=== PATIENT | female | born 1985 | race American Indian/Alaskan Native ===

== ENCOUNTER 2021-09-22 02:33 | Inpatient (IN) | payer SELFPAY ==
[2021-09-22] MEDS ORDERED: ONDANSETRON 4 MG/2 ML INJ IV ONE ×2 (03:32→06:00)
[2021-09-22] MEDS ORDERED: MORPHINE 2 MG/1 ML INJ IV ONE (03:32)
[2021-09-22] MEDS ORDERED: SODIUM CHLORIDE 0.9% 1000 ML 1,000 ML IV ONE ×3 (03:32→03:36)
--- NOTE | 2021-09-22 03:51 | Emergency Department Report ---
ED Abdominal Pain HPI - General Chief Complaint: Nausea/Vomiting/Diarrhea Stated Complaint: NAUSEA VOMITING AND SYNCOPE Time Seen by Provider: 09/22/21 03:31 Source: patient, family Mode of arrival: Ambulatory Limitations: No Limitations, Language Barrier - History of Present Illness Initial Comments: Patient is 35 years old female 3 para 2. Patient stated that she thinks she is 7-9 weeks . She stated that she did not follow-up with OB yet. Patient presented to the ER complaining of several day nausea and vomiting and yesterday she started having abdominal pain. Patient stated that she has some spotting too. Patient denied any fever or chills. No chest pain or shortness of breath. Patient found to be hypertensive with blood pressure like 90/50. MD Complaint: abdominal pain -: days(s) Location: suprapubic Radiation: none Severity scale (0 -10): 8 Quality: cramping - Related Data Allergies Allergy/AdvReac Type Severity Reaction Status Date / Time amoxicillin AdvReac Unknown Verified 09/22/21 03:31 ED Review of Systems ROS: Stated complaint: NAUSEA VOMITING AND SYNCOPE Other details as noted in HPI Comment: All other systems reviewed and negative Constitutional: denies: chills, fever Respiratory: denies: cough, shortness of breath, SOB with exertion, SOB at rest Cardiovascular: palpitations. denies: chest pain Gastrointestinal: abdominal pain, nausea, vomiting. denies: diarrhea, constipation, hematemesis, melena, hematochezia Musculoskeletal: denies: back pain Neurological: denies: headache, weakness, numbness, paresthesias, confusion ED Past Medical Hx - Past Medical History Previous Medical History?: No - Surgical History Past Surgical History?: No ED Physical Exam - General Limitations: No Limitations, Language Barrier General appearance: alert, in no apparent distress - Head Head exam: Present: atraumatic, normocephalic, normal inspection - Eye Eye exam: Present: normal appearance - ENT ENT exam: Present: normal exam, mucous membranes dry - Neck Neck exam: Present: normal inspection. Absent: tenderness - Respiratory Respiratory exam: Present: normal lung sounds bilaterally - Cardiovascular Cardiovascular Exam: Present: regular rate, normal rhythm, normal heart sounds - GI/Abdominal GI/Abdominal exam: Present: soft, normal bowel sounds. Absent: distended, tenderness, guarding, rebound, rigid, organomegaly, mass, bruit, pulsatile mass, hernia - Extremities Exam Extremities exam: Present: normal inspection, full ROM, normal capillary refill. Absent: tenderness, pedal edema, joint swelling, calf tenderness - Back Exam Back exam: Present: normal inspection, full ROM. Absent: CVA tenderness (R), CVA tenderness (L) - Neurological Exam Neurological exam: Present: alert, oriented X3, CN II-XII intact - Psychiatric Psychiatric exam: Present: normal mood - Skin Skin exam: Present: warm, intact, normal color ED Course Vital Signs 09/22/21 09/22/21 02:39 03:11 Temperature 98 F 97.5 F L Pulse Rate 105 H Respiratory 18 Rate Blood Pressure 90/50 [Right] O2 Sat by Pulse 98 Oximetry ED Medical Decision Making - Lab Data Result diagrams: 09/22/21 03:41 09/22/21 03:41 - Radiology Data Radiology results: report reviewed - Medical Decision Making Patient is 35 years old female 3 para 2. Patient stated that she thinks she is 7-9 weeks . She stated that she did not follow-up with OB yet. Patient presented to the ER complaining of several day nausea and vomiting and yesterday she started having abdominal pain. Patient stated that she has some spotting too. Patient denied any fever or chills. No chest pain or shortness of breath. Patient found to be hypertensive with blood pressure like 90/50. Patient presentation is suspicious for ruptured ectopic . Patient r eceived 2 L of normal saline. Stat ultrasound has been ordered. Labs reviewed and showed a quant of 5800. Also show a hemoglobin of 8.1. 2 units of PRBC ordered anticipating more loss of blood. I received a call from [facility] [facility] stating that ultrasound showed a possible ruptured ectopic preg shanna. I immediately discussed the patient with Dr. Schroeder, OB on-call. He is coming to evaluate the patient for further management. Critical Care Time: Yes Critical care time in (mins) excluding proc time.: 35 Critical care attestation.: If time is entered above; I have spent that time in minutes in the direct care of this critically ill patient, excluding procedure time. ED Disposition Clinical Impression: Ruptured ectopic Disposition: ADMITTED INPATIENT Is pt being admited?: Yes Condition: Stable
[2021-09-22 04:00] LABS: Basophils % (Auto) 0.2 % (0.0-1.8); Eosinophils % (Auto) 0.1 % (0.0-4.3); Hematocrit 23.7 % (30.3-42.9); Hemoglobin 8.1 gm/dl (10.1-14.3); Lymphocytes # (Auto) 1.2 K/mm3 (1.2-5.4); Lymphocytes % (Auto) 9.6 % (13.4-35.0); Mean Corpuscular HGB Conc 34 % (30-34); Mean Corpuscular Volume 96 fl (79-97); Monocytes # (Auto) 0.5 K/mm3 (0.0-0.8); Monocytes % (Auto) 4.1 % (0.0-7.3); Platelet Count 258 K/mm3 (140-440); Red Blood Count 2.48 M/mm3 (3.65-5.03); Red Cell Distribution Width 13.4 % (13.2-15.2)
[2021-09-22 04:20] LABS: Alanine Aminotransferase 8 units/L (7-56); BUN/Creatinine Ratio 13; Bilirubin,Direct < 0.2 mg/dL (0-0.2); Blood Urea Nitrogen 8 mg/dL (7-17); Calcium 7.3 mg/dL (8.4-10.2); Hemolysis Index 21
[2021-09-22] MEDS ORDERED: MORPHINE 4 MG/1 ML INJ IM ONE (06:00)
[2021-09-22] MEDS ORDERED: SODIUM CHLORIDE 0.9% 500 ML 500 ML IV ONE (06:03)
--- NOTE | 2021-09-22 06:05 | Ultrasound Report ---
ULTRASOUND PELVIS INDICATION: Abdominal pain . TECHNIQUE: Transabdominal. Duplex Color Doppler used: Yes. COMPARISON: None available FINDINGS: Uterus: Present. Size: 9.6 x 5 x 5.9 cm. Endometrial complex: Thickened measuring 2.1 cm. Mass lesions: None. Additional findings: None. Right Ovary -- Normal. Blood flow: Normal. Cyst or mass: None. Left Ovary-- Normal. Blood flow: Normal. Cyst or mass: 1.9 cm cyst. Urinary Bladder: Normal. Free Fluid: None. Additional Findings: Moderate complex fluid. IMPRESSION: 1. Thickened endometrial stripe. No intrauterine . 2. Moderate complex fluid. This is nonspecific but can be seen in the setting of ectopic 3. 1.9 cm left ovarian cyst. Signer Name: Ángel Alaniz MD Signed: 09/22/2021 6:01 AM Workstation Name: [id number]
--- NOTE | 2021-09-22 07:04 | History and Physical Report ---
History of Present Illness Date of examination: 09/22/21 Date of admission: 09/22/2021 Chief complaint: Abdominal pain and N/V History of present illness: 35 y/o at 7-3/7 weeks presents to [facility] reporting sudden onset abdominal pain with associated nausea and vomiting. She reports the pain as sharp, 8/10, and intermittent radiating from pelvis. She is . B-hCG today is >5,000. No IUP seen on pelvic US, however blood surrounding uterus is seen. HgB= 8.1. Clinically, I am suspicious for a ruptured ectopic . As such, I offered this patient diagnostic laparoscopy, possible exploratory laparatomy, and possible salpingectomy. The R/A/B were explained, including but not limited to: infection, bleeding, damage to bowel and/or bladder, and . She verbalized understanding and signed the operative consent form. Currently, she is receiving a blood transfusion in the E.R.. An additional 2 units of PRBC are crossmatched. I met with the nursing refrigeration supervisor to mobilize an O.R. team. 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 Family/Genetic History: diabetes (Mother) Social history: no significant social history - Obstetrical History Expected Date of Delivery: 05/08/22 Actual Gestation: 7 Week(s) 3 Day(s) : 3 Para: 2 Hx # Term Pregnancies: 2 Number of Pregnancies: 0 Spontaneous Abortions: 0 Induced : 0 Number of Living Children: 2 Medications and Allergies Allergies Allergy/AdvReac Type Severity Reaction Status Date / Time amoxicillin AdvReac Unknown Verified 09/22/21 03:31 Review of Systems All systems: negative Gastrointestinal: abdominal pain, nausea, vomiting - Vital Signs Vital signs: Vital Signs Temp Pulse Resp BP Pulse Ox 98 F 105 H 18 90/50 98 09/22/21 02:39 09/22/21 02:39 09/22/21 02:39 09/22/21 02:39 09/22/21 02:39 Temp Pulse Resp BP Pulse Ox 97.5 F L 105 H 18 90/50 98 09/22/21 03:11 09/22/21 02:39 09/22/21 02:39 09/22/21 02:39 09/22/21 02:39 - Physical Exam Breasts: Positive: normal Cardiovascular: Other (tachycardia) Lungs: Positive: Normal air movement Abdomen: Positive: distention, tenderness, other (Rebound tenderness) Genitourinary (Female): Positive: normal external genitalia, normal perenium Vulva: both: normal Vagina: Positive: normal moisture Uterus: Positive: enlarged, tender Adnexa: both: tenderness Anus/Rectum: Positive: normal perianal skin Extremities: Positive: normal Deep Tendon Reflex Grade: Normal +2 Results Result Diagrams: 09/22/21 03:41 09/22/21 03:41 Abnormal lab results 09/22/21 09/22/21 09/22/21 Range/Units 03:41 03:41 03:41 WBC 12.7 H (4.5-11.0) K/mm3 RBC 2.48 L (3.65-5.03) M/mm3 Hgb 8.1 L (10.1-14.3) gm/dl Hct 23.7 L (30.3-42.9) % MCH 33 H (28-32) pg Lymph % (Auto) 9.6 L (13.4-35.0) % Seg Neutrophils % 86.0 H (40.0-70.0) % Seg Neutrophils # 10.9 H (1.8-7.7) K/mm3 Sodium 135 L (137-145) mmol/L Carbon Dioxide 17 L (22-30) mmol/L Glucose 116 H (65-100) mg/dL Calcium 7.3 L (8.4-10.2) mg/dL Total Protein 5.2 L (6.3-8.2) g/dL Albumin 3.0 L (3.9-5) g/dL HCG, Quant 5842 H (0-4) mIU/mL Crossmatch 09/22/21 Range/Units 05:43 WBC (4.5-11.0) K/mm3 RBC (3.65-5.03) M/mm3 Hgb (10.1-14.3) gm/dl Hct (30.3-42.9) % MCH (28-32) pg Lymph % (Auto) (13.4-35.0) % Seg Neutrophils % (40.0-70.0) % Seg Neutrophils # (1.8-7.7) K/mm3 Sodium (137-145) mmol/L Carbon Dioxide (22-30) mmol/L Glucose (65-100) mg/dL Calcium (8.4-10.2) mg/dL Total Protein (6.3-8.2) g/dL Albumin (3.9-5) g/dL HCG, Quant (0-4) mIU/mL Crossmatch See Detail All other labs normal. Ultrasound: report reviewed, image reviewed (No IUP. Suspicious for pelvic blood surrounding uterus.) Assessment and Plan - Patient Problems (1) Ruptured ectopic Current Visit: Yes Status: Acute Plan to address problem: B-hCG today is >5,000. No IUP seen on pelvic US, however blood surrounding uterus is seen. HgB= 8.1. Clinically, I am suspicious for a ruptured ectopic . As such, I offered this patient diagnostic laparoscopy, possible exploratory laparatomy, and possible salpingectomy. The R/A/B were explained, including but not limited to: infection, bleeding, damage to bowel and/or bladder, and . She verbalized understanding and signed the operative consent form. Currently, she is receiving a blood transfusion in the E.R.. An additional 2 units of PRBC are crossmatched. I met with the nursing refrigeration supervisor to mobilize an O.R. team.
--- NOTE | 2021-09-22 07:49 | Anesthesia Day of Surgery ---
Anesthesia Day of Surgery - Day of Surgery Patient Examined: Yes Patient H&P Reviewed: Yes Patient is NPO: Yes
--- NOTE | 2021-09-22 07:49 | Anesthesia Consultation ---
Anesthesia Consult and Med Hx Date of service: 09/22/21 - Airway Anesthetic Teeth Evaluation: Good ROM Head & Neck: Adequate Mental/Hyoid Distance: Adequate Mallampati Class: Class II Intubation Access Assessment: Probably Good - Pre-Operative Health Status ASA Pre-Surgery Classification: ASA2, Emergency Proposed Anesthetic Plan: General - Pulmonary Hx Smoking: Yes (vapes sometimes) - Hematic Hx Anemia: Yes - Other Systems Hx Obesity: Yes - Additional Comments Anesthesia Medical History Comments: ectopic
[2021-09-22] MEDS ORDERED: HYDROmorphone 1 MG/1 ML INJ ONE (07:52)
[2021-09-22] MEDS ORDERED: LIDOCAINE MPF (2%) 20 MG/1 ML VIAL 5 ML ONE (07:53)
[2021-09-22] MEDS ORDERED: SUCCINYLCHOLINE CHLORIDE 200 MG/10 ML INJ MDV ONE (07:53)
[2021-09-22] MEDS ORDERED: ROCURONIUM 50 MG/5 ML INJ IV ONE (07:53)
[2021-09-22] MEDS ORDERED: propofoL 200 MG/20 ML VIAL IV ONE (07:53)
[2021-09-22] MEDS ORDERED: SODIUM CHLORIDE 0.9% 1000 ML 1,000 ML ONE ×5 (08:11→15:41)
[2021-09-22] MEDS ORDERED: PHENYLEPHRINE/NS 1,000 MCG/10 ML SYRINGE (OR USE) IV ONE (08:27)
--- NOTE | 2021-09-22 08:32 | Event Note ---
Date: 09/22/21 I received this patient in the OR hallway from Dr. Schroeder and additional Dilatation and Curettage procedure added to consents since normal ovaries bilaterally and tubes and no IUP seen with B-HCG >5,000. Pt also told with hemoperitoneum, I will proceed with exploratory laparotomy not laparoscopy and pt agreeable. Patient signed the additional portion of consents in the presence of OR circulating nurse who witnessed. Pt taken to OR via stretcher. Of note is the pt present to ER at 3:48am and their note states Dr. Schroeder was immediately notified at that time.
[2021-09-22] MEDS ORDERED: GENTAMICIN 40 MG/ML VIAL 2 ML ONE (08:51)
[2021-09-22] MEDS ORDERED: SODIUM CHLORIDE 0.9% IRR 1,500 ML BOTTLE IR ONE (08:56)
[2021-09-22] MEDS ORDERED: BUPIVACAINE/PF (0.5%) 5 MG/1 ML 30 ML VIAL INFILTRATI ONE ×3 (08:57→09:16)
[2021-09-22] MEDS ORDERED: SODIUM CHLORIDE 0.9% 100 ML ONE (09:07)
[2021-09-22] MEDS ORDERED: dexAMETHasone 20 MG/5 ML VIAL ONE (09:32)
[2021-09-22] MEDS ORDERED: NEOSTIGMINE 10MG/10 ML INJ MDV ONE (10:25)
[2021-09-22] MEDS ORDERED: GLYCOPYRROLATE 0.4 MG/2 ML INJ ONE (10:26)
[2021-09-22] MEDS ORDERED: ONDANSETRON 4 MG/2 ML INJ ONE (10:26)
[2021-09-22] MEDS: HYDROmorphone 1 MG/1 ML INJ IV PRN ×3 (11:10→11:30)
--- NOTE | 2021-09-22 11:10 | Procedure Note ---
Date of procedure: 09/22/21 Pre-op diagnosis: Ruptured ectopic Post-op diagnosis: same (Ruptured right ectopic with 1600cc hemoperitoneum) Procedure: Exploratory lap and right salpingectomy with evacuation of hemoperitoneum After the risks, benefits and alternatives again discussed with patient and additional possible dilatation and curettage added to her current consents of exploratory laparotomy due to fluid noted on ultrasound, pt signed consents with initials at my point of addition and then I also signed the consents previously obtained by Dr. Schroeder. Pt was taken via stretcher to the OR with IV fluids running, time out done and general anesthesia given. Pt was prepped and draped after anethesia adequate, simon cath was placed and pt given clindamycin and gentamycin preop abx (PCN allergy) Transverse incision made in the natural abdominal pfannenstiel crease, however measuring approx 7cm, this was taken sharply to the fascia and the fascia entered using electrocautery and extended bilaterally. The superior fascia was bluntly and also with the electrocautery and in a similar manner the inferior fascia. The rectus muscle then in the midline and purple color seen thru peritoneum. Peritoneal cavity entered bluntly and pool suction used and attention placed to lower pelvis where I grasped the fundus and look at the left adnexa with ultrasound stating there was a cyst, same appeared normal and then right adnexa examined and active bleeding noted from ruptured tube site. Avascular portion of mesosalpinx entered and the raudel clamps placed on the proximal tube near cornua and the remaining ruptured tube with products of conception and with fimbriae excised completely. The remaining free ends doubly clamped and suture ligated with 0-vicryl suture. Excellent hemostasis achieved. Attention turned to evacuating the remaining clots with both right and left culdesac having hemoperitoneum measuring a total of 1600cc. Copious irrigation done to abdomen with additional 2000cc of warm normal saline and hemostasis remains. Pt placed in reverse trendelenburg to clear both side of any remaining blood or clots. The peritoneum was then closed using 3-0 vicryl in a continuous fashion and the rectus muscle reapproximated with 0-vicryl in a continuous fashion. The rectus closed from left side towards the right in a continuous fashion. The subcutaneous tissue was irrigated with normal saline and reapproximated with 3-0 vicryl continuously. The skin closed with 4-0 monocryl, steristrips placed and local anesthesia 0.25% plain marcaine given. Telfa and Abd dressing applied Pathology: All the large clots not absorbed in suction container and the right ruptured tube and products of conception attached INTAKE: 2000cc crystalloids and 2units PRBC OUTPUT: 350cc clear urine at the end of the procedure EBL: 1600cc hemoperitoneum Findings: Hemoperitoneum vast approx 1600cc per anesthesia with extensive dark clots and active bleed noted to right ruptured fallopian tube with products of conception almost completely expelled in the cavity. normal right ovary; normal left tube and ovary. Dr. Schroeder also notified of this finding Implants: none Anesthesia: SEAN Surgeon: AL KERR Estimated blood loss: other (1600cc hemoperitoneum) Pathology: list (Extensive dark clots throughout abdomen and left fallopian tube with fimbriae and small products of conception attached thru the hole in tube) Specimen disposition: to lab Condition: stable Disposition: PACU
[2021-09-22] MEDS ORDERED: ONDANSETRON 4 MG/2 ML INJ IV PRN ×2 (12:00→17:38)
[2021-09-22] MEDS ORDERED: HYDROmorphone 1 MG/1 ML INJ IV PRN ×2 (12:00→17:38)
[2021-09-22 12:28] LABS: Hematocrit 25.4 % (30.3-42.9); Hemoglobin 8.1 gm/dl (10.1-14.3)
--- NOTE | 2021-09-22 13:10 | Event Note ---
Date: 09/22/21 pt seen in recovery/PACU and nurse states systolic decreased to 80's and pt allowed to speak with her in my presence and her heart rate increased to 100-110's; I agree for #3 PRBC to be transfused and repeat H/H in 4hrs unless pressures still low. Pt gets IV pain med. May have toradol prn later when stable. To receive additional IV abx for post op x24hrs. Urine output good with 200cc noted in simon at this time and same clear. Plan of care discussed with patient and her notified per her request. Will transfer to postpar brent only when pt stable and nurses aware.
[2021-09-22] MEDS ORDERED: SODIUM CHLORIDE 0.9% 500 ML 500 ML ONE (13:54)
[2021-09-22] MEDS ORDERED: ALBUMIN HUMAN 25% (25 GM/100 ML) INJ IV ONE (14:50)
[2021-09-22 14:53] LABS: Mean Corpuscular HGB Conc 35 % (30-34); Mean Corpuscular Volume 90 fl (79-97); Platelet Count 165 K/mm3 (140-440); Red Blood Count 2.56 M/mm3 (3.65-5.03); Red Cell Distribution Width 16.7 % (13.2-15.2)
--- NOTE | 2021-09-22 15:55 | Cat Scan Report ---
CT ABDOMEN AND PELVIS WITH CONTRAST HISTORY: severe anemia COMPARISON: No relevant comparison TECHNIQUE: Axial CT images were obtained through the abdomen and pelvis after 100 cc of IV contrast. Sagittal and coronal reformatted images. All CT scans at this location are performed using CT dose re duction for ALARA by means of automated exposure control. FINDINGS: CT ABDOMEN: Lung Bases: Trace bilateral pleural effusions and minor subpleural atelectatic changes in the lung ba ses. Normal heart size. Liver: 1.8 cm hypodense lesion in the left hepatic lobe with subtle peripheral nodular enhancement pr obably represents a cavernous hemangioma. The remainder the liver is unremarkable. Biliary: No significant abnormality. Spleen: No significant abnormality. Unenlarged. Pancreas: No significant abnormality. Adrenals: No significant abnormality. Kidneys: There appear to be a U tiny calyceal stones in the superior right kidney. The left kidney an d collecting system are unremarkable. No hydronephrosis. Lymphatics: No lymphadenopathy. Vasculature: No significant abnormality. Bowel/Peritoneum: No evidence for bowel obstruction or focal inflammation. There is a mild degree of hyperdense fluid in the pelvis and lower abdomen. Density measures 55 Hounsfield units in the cul-de- sac. This is consistent with small to medium hemoperitoneum. There is trace free air in the lower pel vis and along the anterior pelvic wall soft tissues consistent with recent surgery. CT PELVIS: : The uterus and adnexa are unremarkable. The bladder is mostly empty but unremarkable. Osseous Structures: No significant abnormality. Additional Findings: None IMPRESSION: Small to medium slightly hyperdense fluid is identified in the pelvis consistent with hemoperitoneum. There is evidence for recent surgery. No large uncontained hemorrhage is appreciated. Signer Name: Pepito Miranda Jr, MD Signed: 09/22/2021 3:50 PM Workstation Name: [id number]
[2021-09-22 16:00] LABS: Basophils % (Manual) 0 % (0.0-1.8); Eosinophils % (Manual) 0 % (0.0-4.3); Monocytes % (Manual) 0 % (0.0-7.3); RBC Morphology Normal; Total Cells Counted 100; Toxic Granulation 1+
[2021-09-22 16:01] LABS: Platelet Estimate Consistent w Auto
[2021-09-22 16:37] LABS: ABG Base Excess -6.4 mmol/L (-2.0-3.0); ABG HCO3 18.7 mmol/L (20.0-26.0); ABG Methemoglobin 0.5 % (0.0-1.5); ABG Oxygen Saturation 98.2 % (95.0-99.0); ABG PCO2 35.1 mm Hg; ABG PH 7.343 pH Units (7.350-7.450); ABG PO2 118.2 mm Hg (80.0-90.0)
--- NOTE | 2021-09-22 16:41 | Event Note ---
Date: 09/22/21 pt evaluated in PACU with no symptoms of dizziness or light headedness when sitting upwards. Abd soft and non-distended. perineal pad with dime size dark red stain. Pt states this is the best she has felt in the past 24hrs. Denies previous upper abd pain. Pt has received 2units PRBC and hgb 8.1 and platelets 165 and vitals with BP high 86-88/50's and heart rate 93 -104. O2sat at 97-99% with n/cannula at 2L/min. Pt given an additional 2units and CT of abd/pelvis done with normal uterus and adnexa and small to moderate fluid in the pelvis. Pt was given copious irrigation by me in the OR. In my estimation, pt may have lost more than 1600cc with hemoperitoneum with hgb of 8 to start. Discussed current findings with anesthesia team, ABG ordered by them to determine base excess and same was BE -6 with hgb now 9.3. When anesthesia conversed with pt, she states that her systolic highest is 110's and her BP runs 90-110's systolic usually. To return to the OR without an active bleed, will be last resort. Urine output remains >100cc/hr. 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 Will repeat cbc in 4hrs prior to another transfusion. Neither PRBC nor FFP available at the blood bank at this time with blood shortage in [place]. Plan of care discussed with pt and all questions encouraged and answered.
[2021-09-22] MEDS ORDERED: METOCLOPRAMIDE 10 MG/2 ML INJ IV PRN (17:38)
[2021-09-22] MEDS ORDERED: MORPHINE 2 MG/1 ML INJ IV PRN (17:38)
[2021-09-22] MEDS ORDERED: SIMETHICONE 80 MG CHEW TAB PO PRN (17:38)
[2021-09-22] MEDS ORDERED: LACTATED RINGERS 1,000 ML IV SCH (17:38)
[2021-09-22] MEDS ORDERED: SODIUM CHLORIDE 0.9% 500 ML 500 ML IV SCH (18:08)
[2021-09-22] MEDS: GENTAMICIN/NS 80 MG/100 ML 100 ML IV SCH (18:23)
[2021-09-22] MEDS ORDERED: oxyCODONE /ACETAMINOPHEN 5-325MG TAB PO PRN (18:28)
--- NOTE | 2021-09-22 18:33 | Post Anesthesia Evaluation ---
- Post Anesthesia Evaluation Patient Participated: Yes Airway Patent: Yes Stable Respiratory Function: Yes Nausea/Vomiting: No Temp > 96.8F: Yes Pain Manageable: Yes Adequeate Hydration: Yes Anesthesia Complications: No Block Receding Appropriately: Not Applicable Patient on Ventilator: No
[2021-09-22] MEDS ORDERED: D5W/0.45% NACL/KCL 20 MEQ 20 MEQ/1,000 ML BAG IV SCH (19:38)
[2021-09-22 20:15] LABS: Hematocrit 26.3 % (30.3-42.9); Mean Corpuscular HGB Conc 34 % (30-34); Mean Corpuscular Volume 88 fl (79-97); Platelet Count 165 K/mm3 (140-440); Red Blood Count 2.98 M/mm3 (3.65-5.03)
[2021-09-22 20:41] LABS: Alanine Aminotransferase 7 units/L (7-56); Albumin 3.2 g/dL (3.9-5); Blood Urea Nitrogen 5 mg/dL (7-17); Calcium 6.2 mg/dL (8.4-10.2); Hemolysis Index 10
[2021-09-22 21:16] LABS: BUN/Creatinine Ratio 10
[2021-09-22 21:40] LABS: Basophils % (Manual) 0 % (0.0-1.8); Eosinophils % (Manual) 0 % (0.0-4.3); Total Cells Counted 100
[2021-09-22 21:43] LABS: Platelet Estimate Consistent w Auto; RBC Morphology Normal
[2021-09-22] MEDS: KETOROLAC 30 MG/1 ML INJ IV PRN (23:39)
[2021-09-23] MEDS: GENTAMICIN/NS 80 MG/100 ML 100 ML IV SCH ×2 (02:55→11:05)
[2021-09-23] MEDS: KETOROLAC 30 MG/1 ML INJ IV PRN ×2 (06:16→19:00)
[2021-09-23 10:59] LABS: Basophils # (Auto) 0.1 K/mm3 (0.0-0.1); Basophils % (Auto) 0.6 % (0.0-1.8); Eosinophils # (Auto) 0.1 K/mm3 (0.0-0.4); Eosinophils % (Auto) 0.5 % (0.0-4.3); Hematocrit 24.9 % (30.3-42.9); Hemoglobin 8.4 gm/dl (10.1-14.3); Lymphocytes # (Auto) 2.8 K/mm3 (1.2-5.4); Lymphocytes % (Auto) 29.3 % (13.4-35.0); Mean Corpuscular HGB Conc 34 % (30-34); Mean Corpuscular Volume 88 fl (79-97); Monocytes # (Auto) 0.6 K/mm3 (0.0-0.8); Platelet Count 159 K/mm3 (140-440); Red Blood Count 2.83 M/mm3 (3.65-5.03); Red Cell Distribution Width 16.5 % (13.2-15.2)
[2021-09-23 11:24] LABS: Alanine Aminotransferase 7 units/L (7-56); Blood Urea Nitrogen 5 mg/dL (7-17); Calcium 6.6 mg/dL (8.4-10.2); Hemolysis Index 3
--- NOTE | 2021-09-23 11:34 | Progress Note ---
Assessment and Plan POD#1 Exp lap, right salpingectomy for ruptured ectopic with anemia; s/p 4units PRBC 1. Repeat CBC this am with hgb 8.4 2. Await results for HCG quant and CMP today; specimen in lab 3. Will remove dressing later this evening and continue routine post op care Will discharge home tomorrow if pt stable Subjective Date of service: 09/23/21 Principal diagnosis: POD#1 Exp lap, right salpingectomy for ruptured ectopic preg Interval history: pt states that she feels much better than yesterday and denies right shoulder pain or upper abd pain. pt states pain only along her incision that is controlled with meds. pt has passed flatus and voiding without difficulty. The nurses state pt states she is ready to go home however when I evaluated pt, she states her friend is in town taking care of her 2yr old baby and she would rather stay overnight and make sure everything is alright. denies chest pain or dizziness. Denies vag bleed. pt is breast pumping milk that she was instructed to dump x24hrs after her current surgery, then she looks forward to continue breast feeding her 2yr old at home. Objective - Constitutional Vitals: Vital Signs - 12hr 09/23/21 09/23/21 09/23/21 00:21 04:58 07:18 Temperature 98.8 F 99.0 F 98.2 F Pulse Rate 88 102 H 95 H Pulse Rate [ Apical] Respiratory 16 16 18 Rate Blood Pressure 90/54 94/52 94/57 O2 Sat by Pulse 100 97 92 Oximetry 09/23/21 09/23/21 08:00 10:26 Temperature Pulse Rate Pulse Rate [ 95 H Apical] Respiratory 18 Rate Blood Pressure O2 Sat by Pulse 94 94 Oximetry General appearance: Present: no acute distress - Neck Neck: normal ROM - Respiratory Respiratory effort: normal - Cardiovascular Rhythm: regular Extremities: No edema - Gastrointestinal General gastrointestinal: Present: soft, non-tender, hypoactive bowel sounds, other (dressing C/D/I) - Genitourinary Female genitourinary: other (peripad without any blood) - Neurologic Neurologic: moves all extremities - Psychiatric Psychiatric: cooperative - Labs CBC & Chem 7: 09/23/21 10:34 09/22/21 19:53 Labs: Abnormal lab results 09/22/21 09/22/21 09/22/21 Range/Units 05:43 16:28 19:53 WBC 11.4 H (4.5-11.0) K/mm3 RBC 2.98 L (3.65-5.03) M/mm3 Hgb 9.0 L (10.1-14.3) gm/dl Hct 26.3 L (30.3-42.9) % MCHC (30-34) % RDW 17.0 H (13.2-15.2) % Seg Neuts % (Manual) 90.0 H (40.0-70.0) % Lymphocytes % (Manual) 7.0 L (13.4-35.0) % Seg Neutrophils # Man 10.3 H (1.8-7.7) K/mm3 Lymphocytes # (Manual) 0.8 L (1.2-5.4) K/mm3 ABG pH 7.343 L (7.350-7.450) pH Units ABG pO2 118.2 H (80.0-90.0) mm Hg ABG HCO3 18.7 L (20.0-26.0) mmol/L ABG Base Excess -6.4 L (-2.0-3.0) mmol/L ABG Hemoglobin 9.3 L (12.0-16.0) gm/dl Chloride (98-107) mmol/L Carbon Dioxide (22-30) mmol/L BUN (7-17) mg/dL Creatinine (0.6-1.2) mg/dL Glucose (65-100) mg/dL Calcium (8.4-10.2) mg/dL Total Protein (6.3-8.2) g/dL Albumin (3.9-5) g/dL Crossmatch See Detail 09/22/21 09/22/21 09/22/21 Range/Units 19:53 Unknown Unknown WBC 12.7 H (4.5-11.0) K/mm3 RBC 2.56 L (3.65-5.03) M/mm3 Hgb 8.1 L 8.0 L (10.1-14.3) gm/dl Hct 25.4 L 23.0 L (30.3-42.9) % MCHC 35 H (30-34) % RDW 16.7 H (13.2-15.2) % Seg Neuts % (Manual) 95.0 H (40.0-70.0) % Lymphocytes % (Manual) 5.0 L (13.4-35.0) % Seg Neutrophils # Man 12.1 H (1.8-7.7) K/mm3 Lymphocytes # (Manual) 0.6 L (1.2-5.4) K/mm3 ABG pH (7.350-7.450) pH Units ABG pO2 (80.0-90.0) mm Hg ABG HCO3 (20.0-26.0) mmol/L ABG Base Excess (-2.0-3.0) mmol/L ABG Hemoglobin (12.0-16.0) gm/dl Chloride 111.0 H (98-107) mmol/L Carbon Dioxide 18 L (22-30) mmol/L BUN 5 L (7-17) mg/dL Creatinine 0.5 L (0.6-1.2) mg/dL Glucose 116 H (65-100) mg/dL Calcium 6.2 L D (8.4-10.2) mg/dL Total Protein 4.8 L (6.3-8.2) g/dL Albumin 3.2 L (3.9-5) g/dL Crossmatch 09/23/21 Range/Units 10:34 WBC (4.5-11.0) K/mm3 RBC 2.83 L (3.65-5.03) M/mm3 Hgb 8.4 L (10.1-14.3) gm/dl Hct 24.9 L (30.3-42.9) % MCHC (30-34) % RDW 16.5 H (13.2-15.2) % Seg Neuts % (Manual) (40.0-70.0) % Lymphocytes % (Manual) (13.4-35.0) % Seg Neutrophils # Man (1.8-7.7) K/mm3 Lymphocytes # (Manual) (1.2-5.4) K/mm3 ABG pH (7.350-7.450) pH Units ABG pO2 (80.0-90.0) mm Hg ABG HCO3 (20.0-26.0) mmol/L ABG Base Excess (-2.0-3.0) mmol/L ABG Hemoglobin (12.0-16.0) gm/dl Chloride (98-107) mmol/L Carbon Dioxide (22-30) mmol/L BUN (7-17) mg/dL Creatinine (0.6-1.2) mg/dL Glucose (65-100) mg/dL Calcium (8.4-10.2) mg/dL Total Protein (6.3-8.2) g/dL Albumin (3.9-5) g/dL Crossmatch Medications & Allergies - Medications Allergies/Adverse Reactions: Allergies amoxicillin Adverse Reaction (Verified 09/22/21 03:31) Unknown "Constipation" Home Medications: Home Medications Medication Instructions Recorded Confirmed Last Taken Type No Known Home Medications [No 09/23/21 09/23/21 Unknown History Reported Home Medications] Active Medications: Generic Name Dose Route Start Last Admin Trade Name Freq PRN Reason Stop Dose Admin Hydromorphone HCl 0.5 mg 09/22/21 12:00 Hydromorphone 1 Mg/1 Ml Inj IV Q10MIN PRN Pain , Severe (7-10) Hydromorphone HCl 0.5 mg 09/22/21 17:38 Hydromorphone 1 Mg/1 Ml Inj IV Q3H PRN Pain , Severe (7-10) Lactated Ringer's 1,000 mls @ 150 mls/hr 09/22/21 17:38 09/22/21 22:55 Lactated Ringers IV 150 mls/hr DIRECT ROULA Administration Potassium Chloride/Dextrose/Sod Cl 20 meq in 1,000 mls @ 150 mls/hr 09/22/21 19:38 D5w/0.45% Nacl/Kcl 20 Meq IV DIRECT ROULA Sodium Chloride 500 mls @ 0 mls/hr 09/22/21 18:08 Nacl 0.9% 500 Ml IV ONCE ROULA As Directed Ketorolac Tromethamine 15 mg 09/22/21 17:38 09/23/21 06:16 Ketorolac 30 Mg/1 Ml Inj IV 15 mg Q6H PRN Administration Pain, Moderate (4-6) Metoclopramide HCl 10 mg 09/22/21 17:38 Metoclopramide 10 Mg/2 Ml Inj IV Q6H PRN Nausea And Vomiting Morphine Sulfate 2 mg 09/22/21 17:38 Morphine 2 Mg/1 Ml Inj IV Q4H PRN Pain, Moderate (4-6) Ondansetron HCl 4 mg 09/22/21 12:00 Ondansetron 4 Mg/2 Ml Inj IV ONCE PRN Nausea And Vomiting Ondansetron HCl 4 mg 09/22/21 17:38 Ondansetron 4 Mg/2 Ml Inj IV Q4H PRN Nausea And Vomiting Oxycodone/Acetaminophen 2 tab 09/22/21 18:28 09/23/21 09:00 Oxycodone /Acetaminophen 5-325mg Tab PO 2 tab Q4H PRN Administration Pain , Severe (7-10) Simethicone 80 mg 09/22/21 17:38 09/23/21 09:03 Simethicone 80 Mg Chew Tab PO 80 mg Q6H PRN Administration Gas pain
[2021-09-23 11:44] LABS: BUN/Creatinine Ratio 10
--- NOTE | 2021-09-23 13:04 | Post Anesthesia Evaluation ---
- Post Anesthesia Evaluation Patient Participated: Yes Airway Patent: Yes Stable Respiratory Function: Yes Nausea/Vomiting: No Temp > 96.8F: Yes Pain Manageable: Yes Adequeate Hydration: Yes Anesthesia Complications: No Block Receding Appropriately: Not Applicable Patient on Ventilator: No Other Comments: Patient is stable, ambulates well. No symptoms of continiuos hemorrhage
[2021-09-23] MEDS: IBUPROFEN 800 MG TAB PO PRN (20:31)
[2021-09-23] MEDS: FERROUS SULFATE 325 MG TAB PO SCH (22:40)
[2021-09-23] MEDS: ASCORBIC ACID 500 MG TAB PO SCH (22:40)
[2021-09-24] MEDS: IBUPROFEN 800 MG TAB PO PRN ×2 (03:39→09:43)
--- NOTE | 2021-09-24 08:45 | Progress Note ---
Subjective - Subjective Date of service: 09/24/21 Principal diagnosis: POD#2 Exp lap, right salpingectomy for ruptured ectopic preg Interval history: Incison c/d/i Hb stable tolerating PO Ambulatory afebrile Plan for DC home Rosalba Tomlinson MD Patient reports: appetite normal, voiding normally, pain well controlled, ambulating normally Objective - Vital Signs Latest vital signs: Vital Signs Temp Pulse Resp BP Pulse Ox 09/24/21 04:31 98.3 F 80 18 97/63 99 09/23/21 23:53 98.6 F 83 18 100/63 98 09/23/21 20:16 98.5 F 95 H 20 95/53 100 09/23/21 19:50 100 09/23/21 14:56 98.0 F 92 H 19 91/54 96 09/23/21 12:03 98.1 F 95 H 18 90/49 98 09/23/21 10:26 94 Intake and Output 09/23/21 09/24/21 09/24/21 23:59 07:59 15:59 Intake Total 360 360 Output Total 1100 Balance -740 360 Intake: Oral 120 Intake, Free Water 240 360 Output: Urine 1100 Void 1100 Other: Total, Intake Amount 120 Total, Output Amount 400 Voiding Method Toilet # Voids Void 1 2 - Labs Labs: Abnormal lab results 09/22/21 09/23/21 09/23/21 Range/Units 05:43 10:34 10:34 RBC 2.83 L (3.65-5.03) M/mm3 Hgb 8.4 L (10.1-14.3) gm/dl Hct 24.9 L (30.3-42.9) % RDW 16.5 H (13.2-15.2) % Potassium 3.4 L (3.6-5.0) mmol/L Chloride 110.3 H (98-107) mmol/L BUN 5 L (7-17) mg/dL Creatinine 0.5 L (0.6-1.2) mg/dL Glucose 110 H (65-100) mg/dL Calcium 6.6 L (8.4-10.2) mg/dL Alkaline Phosphatase 34 L (35-129) units/L Total Protein 4.9 L (6.3-8.2) g/dL Albumin 3.0 L (3.9-5) g/dL HCG, Quant (0-4) mIU/mL Crossmatch See Detail 09/23/21 Range/Units 10:34 RBC (3.65-5.03) M/mm3 Hgb (10.1-14.3) gm/dl Hct (30.3-42.9) % RDW (13.2-15.2) % Potassium (3.6-5.0) mmol/L Chloride (98-107) mmol/L BUN (7-17) mg/dL Creatinine (0.6-1.2) mg/dL Glucose (65-100) mg/dL Calcium (8.4-10.2) mg/dL Alkaline Phosphatase (35-129) units/L Total Protein (6.3-8.2) g/dL Albumin (3.9-5) g/dL HCG, Quant 1921 H (0-4) mIU/mL Crossmatch
--- NOTE | 2021-09-24 08:48 | Discharge Summary ---
Providers - Providers Date of Admission: 09/23/21 08:27 Date of discharge: 09/24/21 Attending physician: AL KERR 09/22/21 05:45 Consult to Physician [CONS] Stat Comment: Consulting Provider: DIVINA DARLING Physician Instructions: Reason For Exam: Ruptured ectopic Primary care physician: YULI CRUMP Hospitalization Reason for admission: other (ruptured ectopic) Procedure: other (right salpingectomy/exp lap) Condition at discharge: Stable Disposition: 01 HOME / SELF CARE / HOMELESS - Discharge Diagnoses (1) Ruptured ectopic Status: Resolved Plan - Discharge Medications Prescriptions: oxyCODONE /ACETAMINOPHEN [Percocet 5/325] 1 tab PO Q4HR 21 Days #30 tab - Provider Discharge Summary Activity: no sex for 6 weeks Diet: routine Instructions: routine Additional instructions: [] Smoking cessation referral if applicable(refer to patient education folder for contact #) [] Refer to [facility] Booklet Call your doctor immediately for: * Fever > 100.5 * Heavy vaginal bleeding ( >1 pad per hour) * Severe persistent headache * Shortness of breath * Reddened, hot, painful area to leg or breast * Drainage or odor from incision. * Keep incision clean and dry at all times and follow doctor's instructions regarding bathing/showering - Follow up plan Follow up: YULI CRUMP MD [Primary Care Provider] - 3-5 Days AL KERR MD [Staff Physician] - 7 Days
[2021-09-24] MEDS: ASCORBIC ACID 500 MG TAB PO SCH (09:43)
[2021-09-24] MEDS: FERROUS SULFATE 325 MG TAB PO SCH (09:43)
[2021-09-24 14:38] VITALS: BP 104/68
== END 2021-09-24 13:30 | disposition home or self-care (01) | DRG 819 ==
LOC: ED 02:33 → UNDOADMOB 06:50 → OB 06:50 → ED 08:23 → OBSVTOIN 11:34 → UNDOADMOB 11:34 → INTOOBSV 11:34 → OB 11:34 → OBSVTOIN 09-23 08:27 → INTOOBSV 09-23 08:27
PROVIDERS: ADMIT Obstetrics & Gynecology; ATTEND Obstetrics & Gynecology
PROC: 10T20ZZ Resection of Products of Conception, Ectopic, Open Approach (ICD-10-PCS; principal; 2021-09-22)
PROC: 0UB50ZZ Excision of Right Fallopian Tube, Open Approach (ICD-10-PCS; 2021-09-22)
PROC: 30233N1 Transfusion of Nonautologous Red Blood Cells into Peripheral Vein, Percutaneous Approach (ICD-10-PCS; 2021-09-22)
DX: O00.101 Right tubal pregnancy without intrauterine pregnancy (principal); Z88.8 Allergy status to other drugs, medicaments and biological substances; Z20.822 Contact with and (suspected) exposure to COVID-19; D64.9 Anemia, unspecified
CPT/HCPCS: 36415; 74177; 76801; 80048; 80053; 80076; 82803; 83690; 84702; 85007; 85014; 85018; 85025; 86850; 86900; 86901; 86920; 88304; 88305; G0378; J1815; J3490; J7120; J7502; Q0162; J0330; J1100; J1170; J1580; J1885; J2270; J2370; J2405; J2704; J2710; J7030; J7040; P9016; P9047; Q9967; U0003

== ENCOUNTER 2021-12-03 10:52 | Emergency (ER) | payer OTHER ==
[2021-12-03] MEDS ORDERED: ONDANSETRON 4 MG/2 ML INJ IV ONE (11:14)
--- NOTE | 2021-12-03 11:39 | Emergency Department Report ---
ED Abdominal Pain HPI - General Chief Complaint: Abdominal Pain Stated Complaint: ABD PAIN Time Seen by Provider: 12/03/21 11:30 Source: EMS Mode of arrival: Stretcher Limitations: No Limitations - History of Present Illness Initial Comments: 36-year-old female with one ectopic present not too long ago who now present with diffuse abdominal pain worsen in the lower region and epigastric area that started around 12 midnight. Pt also reports some nausea and non blood emesis with diarrhea. No fever or chills reported. She reports 3 days spotting December 01- and 2 days of heavy menstruation. Patient is very concerned and worried about a repeat of ectopic . She took home test that came back negative. No other modifying or associated factors reported. - Related Data Previous Rx's Medication Instructions Recorded Last Taken Type oxyCODONE /ACETAMINOPHEN [Percocet 1 tab PO Q4HR 21 Days #30 tab 09/23/21 Unknown Rx 5/325] Ketorolac [Toradol] 10 mg PO Q6H PRN 5 Days #20 tab NS 12/03/21 Unknown Rx Ondansetron [Zofran Odt] 4 mg PO Q8HR 5 Days #15 tab.rapdis 12/03/21 Unknown Rx NS Allergies Allergy/AdvReac Type Severity Reaction Status Date / Time amoxicillin AdvReac Unknown Verified 09/22/21 03:31 ED Review of Systems ROS: Stated complaint: ABD PAIN Other details as noted in HPI Comment: All other systems reviewed and negative Gastrointestinal: abdominal pain, nausea, vomiting, diarrhea ED Past Medical Hx - Past Medical History Hx Congestive Heart Failure: No Hx Diabetes: No Hx Asthma: No Hx COPD: No - Social History Smoking Status: Current Some Day Smoker - Medications Home Medications: Home Medications Medication Instructions Recorded Confirmed Last Taken Type oxyCODONE /ACETAMINOPHEN [Percocet 1 tab PO Q4HR 21 Days #30 tab 09/23/21 Unknown Rx 5/325] Ketorolac [Toradol] 10 mg PO Q6H PRN 5 Days #20 tab NS 12/03/21 Unknown Rx Ondansetron [Zofran Odt] 4 mg PO Q8HR 5 Days #15 tab.rapdis 12/03/21 Unknown Rx NS ED Physical Exam - General Limitations: No Limitations General appearance: alert, in distress (Due to abdominal pain) - Head Head exam: Present: normal inspection - Eye Eye exam: Present: normal appearance Pupils: Present: normal accommodation - ENT ENT exam: Present: normal exam, normal orophraynx, mucous membranes moist - Neck Neck exam: Present: normal inspection, full ROM. Absent: tenderness - Respiratory Respiratory exam: Present: normal lung sounds bilaterally. Absent: respiratory distress, accessory muscle use - Cardiovascular Cardiovascular Exam: Present: regular rate, tachycardia, normal heart sounds - GI/Abdominal GI/Abdominal exam: Present: soft, tenderness (Diffuse tenderness was seen at epigastric and suprapubic area), normal bowel sounds - Extremities Exam Extremities exam: Present: normal capillary refill. Absent: tenderness, pedal edema, joint swelling - Back Exam Back exam: Absent: tenderness, CVA tenderness (R), CVA tenderness (L) - Neurological Exam Neurological exam: Present: alert, oriented X3 - Psychiatric Psychiatric exam: Present: agitated (Due to abdominal pain), anxious - Skin Skin exam: Present: warm, normal color ED Course Vital Signs 12/03/21 12/03/21 12/03/21 11:42 11:48 12:17 Pulse Rate 90 Respiratory 24 20 22 Rate Blood Pressure 111/72 O2 Sat by Pulse 97 Oximetry 12/03/21 12:21 Pulse Rate Respiratory Rate Blood Pressure O2 Sat by Pulse 97 Oximetry - Reevaluation(s) Reevaluation #1: 12/03/21 11:40 Presents with abdominal pain associated with nausea and nonbloody vomiting with diarrhea--differential diagnosis could include but not limited to repeat ectopic , gastroenteritis, pancreatitis, cholecystitis, appendicitis, bilateral ovarian cyst, ruptured ovarian cyst, and all colitis in order to rule this out we will go ahead and order CBC, CMP, urinalysis, urine hCG and serum beta quant, CT scan of the abdomen/pelvic for any inflammatory changes. In the meantime we will go ahead and give 2 mg of morphine, p.o. 4 mg of Zofran for symptomatic relief Reevaluation #2: 12/03/21 11:43 Patient bedside nurse came in to inform me that patient is not having any pain relief with 2 of morphine so we will go ahead and give 1 mg of Dilaudid and reevaluate shortly. Reevaluation #3: 12/03/21 12:45 Noted with slightly elevated AST and ALT at 128/80 with a normal T bili--which she ruled out possibility of obstruction on so we will go ahead and order hepatitis panel to rule out any infectious hepatitis, also noted with slightly low potassium at 3.3 mg/dL--so we will go ahead and give 20 milliequivalents--we also get a CT scan of the abdomen/pelvic for any inflammatory changes--patient reports feeling a bit better after giving the Dilaudid. Reevaluation #4: 12/03/21 14:40 CT abd/pel noted with possible left ovarian cyst with possible ED Medical Decision Making - Lab Data Result diagrams: 12/03/21 11:43 12/03/21 11:43 - Radiology Data interpreted by me: CT abd/pel noted FINDINGS: Lungs/bones: There is minimal bibasilar atelectasis. No acute osseous a bnormality or significant degenerative changes. Abdomen/pelvis: Probable hemangioma again seen in the left lobe. Liver is mildly enlarged with borderline steatosis. The biliary tree, gallbladder, spleen, pancreas, adrenals, kidneys, and proximal GI tract appear unremarkable. There is rectus abdominous diastasis once again. The urinary bladder appears unremarkable. Heterogeneous attenuation within the endometrial canal could represent fluid/blood products--correlate with stage in menstrual cycle. Probable functional cyst noted in the left ovary measuring 1.4 cm on image 129 of series 2. Right ovary is unremarkable. A small amount of fluid also tracks over the region of the right adnexa which could be related to cyst rupture among other etiologies. No acute colonic abnormality identified. IMPRESSION: 1. Reproductive findings as outlined above. If indicated, consider follow-up pelvic ultrasound for more thorough evaluation of this region. Otherwise, nothing acute. 2. Incidental findings as above. - Medical Decision Making See progress note Critical care attestation.: If time is entered above; I have spent that time in minutes in the direct care of this critically ill patient, excluding procedure time. ED Disposition Clinical Impression: Gastroenteritis, Hypokalemia Abdominal pain Qualifiers: Abdominal location: unspecified location Qualified Code(s): R10.9 - Unspecified abdominal pain Ovarian cyst Qualifiers: Laterality: left Qualified Code(s): N83.202 - Unspecified ovarian cyst, left si de Disposition: 01 HOME / SELF CARE / HOMELESS Is pt being admited?: No Does the pt Need Aspirin: No Condition: Stable Instructions: Abdominal Pain (ED), Abdominal Pain, Adult, Ovarian Cyst, [id number] Additional Instructions: Take your pain medication as prescribed Increase your daily fluid to help your hydration Please call and schedule follow-up with your primary doctor/TEAM SUPERVISOR in the next 3 to 5 days for progress Please do not hesitate to call or return to emergency if your symptoms worsen Prescriptions: Ketorolac [Toradol] 10 mg PO Q6H PRN 5 Days #20 tab NS PRN Reason: Pain Ondansetron [Zofran Odt] 4 mg PO Q8HR 5 Days #15 tab.rapdis NS
[2021-12-03] MEDS: MORPHINE 2 MG/1 ML INJ IV ONE ×2 (11:42→13:32)
[2021-12-03] MEDS ORDERED: SODIUM CHLORIDE 0.9% 1000 ML 1,000 ML IV ONE (11:45)
[2021-12-03] MEDS: HYDROmorphone 1 MG/1 ML INJ IV ONE ×2 (11:48→13:32)
[2021-12-03 12:21] VITALS: BP 111/72
[2021-12-03 12:32] LABS: Basophils % (Auto) 0.4 % (0.0-1.8); Eosinophils % (Auto) 0.2 % (0.0-4.3); Hematocrit 36.6 % (30.3-42.9); Lymphocytes # (Auto) 0.7 K/mm3 (1.2-5.4); Lymphocytes % (Auto) 6.4 % (13.4-35.0); Mean Corpuscular HGB Conc 33 % (30-34); Mean Corpuscular Volume 91 fl (79-97); Monocytes # (Auto) 0.5 K/mm3 (0.0-0.8); Monocytes % (Auto) 4.5 % (0.0-7.3); Platelet Count 281 K/mm3 (140-440); Red Blood Count 4.02 M/mm3 (3.65-5.03); Red Cell Distribution Width 14.4 % (13.2-15.2)
[2021-12-03 12:37] LABS: Alanine Aminotransferase 80 units/L (7-56); Blood Urea Nitrogen 8 mg/dL (7-17); Calcium 8.5 mg/dL (8.4-10.2); Hemolysis Index 7
[2021-12-03 12:38] LABS: BUN/Creatinine Ratio 13
[2021-12-03] MEDS ORDERED: POTASSIUM CHLORIDE ER 20 MEQ TAB PO ONE (12:46)
[2021-12-03 12:49] LABS: INR 0.91 (0.87-1.13)
[2021-12-03 12:50] LABS: Partial Thromboplastin Time 26.3 Sec. (24.2-36.6)
--- NOTE | 2021-12-03 14:36 | Cat Scan Report ---
CT ABDOMEN AND PELVIS WITH CONTRAST HISTORY: abdominal pain. COMPARISON: CT abdomen/pelvis from 09/22/2021 TECHNIQUE: CT images of the abdomen and pelvis were obtained following administration of intravenous contrast. All CT scans at this location are performed using CT dose reduction for ALARA by means of automated exposure control. CONTRAST: 100 ml of intravenous contrast administered. FINDINGS: Lungs/bones: There is minimal bibasilar atelectasis. No acute osseous abnormality or significant deg enerative changes. Abdomen/pelvis: Probable hemangioma again seen in the left lobe. Liver is mildly enlarged with borde rline steatosis. The biliary tree, gallbladder, spleen, pancreas, adrenals, kidneys, and proximal GI tract appear unremarkable. There is rectus abdominous diastasis once again. The urinary bladder appears unremarkable. Heterogeneous attenuation within the endometrial canal coul d represent fluid/blood products--correlate with stage in menstrual cycle. Probable functional cyst n oted in the left ovary measuring 1.4 cm on image 129 of series 2. Right ovary is unremarkable. A smal l amount of fluid also tracks over the region of the right adnexa which could be related to cyst rupt ure among other etiologies. No acute colonic abnormality identified. IMPRESSION: 1. Reproductive findings as outlined above. If indicated, consider follow-up pelvic ultrasound for mo re thorough evaluation of this region. Otherwise, nothing acute. 2. Incidental findings as above. Signer Name: Dane Florez MD Signed: 12/03/2021 2:31 PM Workstation Name: [id number]
== END 2021-12-03 17:05 | disposition home or self-care (01) ==
LOC: ED 10:52
DX: A08.4 Viral intestinal infection, unspecified (principal); R10.9 Unspecified abdominal pain; N83.209 Unspecified ovarian cyst, unspecified side; E87.6 Hypokalemia; F17.200 Nicotine dependence, unspecified, uncomplicated; Z79.899 Other long term (current) drug therapy
CPT/HCPCS: 36415; 74177; 80053; 84702; 84703; 85025; 85610; 85730; 96361; 96374; 96375; 99284; J1170; J2270; J2405; J7030; Q9967